=== PATIENT | male | born 1940 | race Caucasian/White ===

== ENCOUNTER 2017-07-02 21:36 | Emergency (ER) | payer OTHER ==
[~2017-07-02] VITALS: Ht 175.3 cm; Wt 108.9 kg
--- NOTE | 2017-07-02 21:45 | NUR ---
BIBRA FOR GLF; NO KO; PATIENT DENIES ANY TRAUMA FROM FALL, CHRONIC BACK PAIN; , ADMITS TO ETOH, NAD NOTED, VSS, RESP EVEN AND UNLABORED, PT PUT ON MONITOR, WAITING FOR MD APARICIO.
--- NOTE | 2017-07-02 22:53 | NUR ---
CALLED PT'S JULIO [phone], WILL COME AND PICK THE PT.
[2017-07-02] MEDS ORDERED: KETOROLAC TROMETHAMINE INJ 30 MG/ML VIAL ONE (22:56)
[2017-07-02] MEDS ORDERED: KETOROLAC TROMETHAMINE INJ 60 MG/2 ML VIAL IM ONE (23:00)
--- NOTE | 2017-07-02 23:08 | NUR ---
Patient is resting comfortably in bed with eyes closed. Easily aroused. VSS
--- NOTE | 2017-07-02 23:08 | NUR ---
REPORT GIVEN TO MAGUI MUÑOZ
[2017-07-02 23:21] VITALS: BP 115/65
--- NOTE | 2017-07-02 23:39 | NUR ---
ER MD AT BEDSIDE SPEAKING WITH /PATIENT REGARDING CARE
--- NOTE | 2017-07-02 23:47 | NUR ---
XR CANCELLED BY MD AND FAMILY
== END 2017-07-02 23:25 | disposition home or self-care (01) ==
LOC: ER 21:38
DX: G89.29 Other chronic pain (principal); M54.9 Dorsalgia, unspecified; F10.129 Alcohol abuse with intoxication, unspecified; E78.00 Pure hypercholesterolemia, unspecified; W18.39XA Other fall on same level, initial encounter; Y93.89 Activity, other specified; Y92.89 Other specified places as the place of occurrence of the external cause; Y99.8 Other external cause status
CPT/HCPCS: A4606; A6253; A6402; J1885; Z7610

== ENCOUNTER 2021-01-17 19:17 | Emergency (ER) | payer OTHER ==
[~2021-01-17] VITALS: Ht 182.9 cm; Wt 123.8 kg
--- NOTE | 2021-01-17 19:27 | NUR ---
PATIENT BIBRA 839 FROM [facility] C/O LEFT LOWER INJURY. NOTED + DEFORMITY. PATIENT IS A/O X 4, RR EVEN AND UNLABORED NO SOB NOTED. PATIENT CONNECTED TO CARDIAC AND POX MONITOR.
--- NOTE | 2021-01-17 19:29 | NUR ---
CALLED DR SANTAMARIA FOR PEER TO PEER
[2021-01-17] MEDS ORDERED: TDAP [DIPH/PERTUSSIS/TET] 0.5 ML VIAL IM ONE ×2 (19:30→19:35)
[2021-01-17] MEDS ORDERED: CEFAZOLIN 1 GM in IV D5W 50 ML IV ONE (19:30)
[2021-01-17] MEDS ORDERED: MORPHINE SULFATE INJ 2 MG/ML DISP.SYRIN IV ONE (19:30)
[2021-01-17] MEDS ORDERED: MORPHINE SULFATE INJ 4 MG/ML DISP.SYRIN ONE (19:35)
[2021-01-17 19:41] LABS: BASOPHILS # (AUTO) 0.1 K/uL (0.0-0.2); BASOPHILS % (AUTO) 1.3 % (0.0-2.0); EOSINOPHILS % (AUTO) 2.2 % (0.0-6.0); HEMATOCRIT 40 % (39-51); HEMOGLOBIN 13.3 g/dL (13.5-17.5); LYMPHOCYTES # (AUTO) 1.3 K/uL (0.8-4.8); LYMPHOCYTES % (AUTO) 27.4 % (20.0-44.0); MEAN CORPUSCULAR HGB CONC 33 g/dl (31.0-36.0); MEAN CORPUSCULAR VOLUME 100 fL (80-96); MONOCYTES # (AUTO) 0.8 K/uL (0.1-1.30); MONOCYTES % (AUTO) 16.5 % (2.0-12.0); NEUTROPHILS # (AUTO) 2.5 K/uL (1.8-8.9); NEUTROPHILS % (AUTO) 52.6 % (43.0-81.0); PLATELET COUNT (AUTO) 213 K/uL (150-450); RED BLOOD CELL COUNT(AUTO) 4.02 MIL/uL (4.5-6.0); WHITE BLOOD COUNT (AUTO) 4.8 K/uL (4.3-11.0)
[2021-01-17 19:53] LABS: CALCIUM, SERUM 8.6 mg/dL (8.5-10.1); CARBON DIOXIDE 28 mmol/L (21-32); CHLORIDE 107 mmol/L (98-107); CREATININE 1.4 mg/dL (0.6-1.3); GLUCOSE 93 mg/dL (74-106); POTASSIUM 4.5 mmol/L (3.5-5.1); SODIUM SERUM 143 mmol/L (136-145); UREA NITROGEN, BLOOD 17 mg/dL (7-18)
--- NOTE | 2021-01-17 20:00 | NUR ---
RAD AT BEDSIDE
--- NOTE | 2021-01-17 20:55 | NUR ---
BULL FROM [facility] CALLED. VS WERE GIVEN. SHE WILL PAGE THEIR DOC TO CALL ER DOCTOR.
[2021-01-17] MEDS ORDERED: KETAMINE HCL (500MG/10ML) 50 MG/ML VIAL ONE (21:00)
[2021-01-17] MEDS ORDERED: KETAMINE HCL (500MG/10ML) 50 MG/ML VIAL IV ONE (21:00)
--- NOTE | 2021-01-17 21:00 | NUR ---
consent obtained for moderate sedation for reduction of open fracture of left lower leg.
--- NOTE | 2021-01-17 21:06 | NUR ---
vitals signs. RT, EMT, RN and MD at bedside
--- NOTE | 2021-01-17 21:07 | NUR ---
Timeout. Ketamine 120mg ivp x 1
--- NOTE | 2021-01-17 21:09 | NUR ---
Pt sedated. on 02 via NRB satting @ 100%. RT at bedside
--- NOTE | 2021-01-17 21:36 | NUR ---
pt is now awake and able to answer questions. airway patent. tolearting on ra, satting @ 98%.
[2021-01-17] MEDS ORDERED: IV NS 0.9% 500 ML BAG IV ONE (22:00)
--- NOTE | 2021-01-17 22:38 | NUR ---
SPOKE TO BILLY AT [facility], AWAITING HOSPITALIST TO ACCEPT PT
[2021-01-17 23:08] LABS: BASOPHILS % (MANUAL) 0 % (0.0-2.0); EOSINOPHILS % (MANUAL) 2 % (0-4); LYMPHOCYTES % (MANUAL) 18 % (16-48); MONOCYTES % (MANUAL) 11 % (0-11.0); NEUTROPHILS % (MANUAL) 69 (42-76)
--- NOTE | 2021-01-17 23:50 | NUR ---
PT SLEEPING WITH EYES CLOSED. ATTACHED TO MONITOR VSS, EASILY AROUSABLE
[2021-01-18] MEDS ORDERED: MORPHINE SULFATE INJ 4 MG/ML DISP.SYRIN ONE (01:11)
--- NOTE | 2021-01-18 01:26 | NUR ---
PATIENT STATED 8/10 PAIN AT LOWER LEFT LEG. PER ER MD MORPHINE 4 MG IVP. PATIENT VSS.
[2021-01-18] MEDS ORDERED: MORPHINE SULFATE INJ 2 MG/ML DISP.SYRIN IV ONE (01:30)
--- NOTE | 2021-01-18 03:32 | NUR ---
[facility] going to [facility] under Dr. Solitario. room 4115a. call report to [phone]. [facility] ambulance eta [phone]
[2021-01-18 04:12] VITALS: BP 116/55
--- NOTE | 2021-01-18 04:26 | NUR ---
REPORT GIVEN TO ANITHA ROSADO.
--- NOTE | 2021-01-18 05:03 | NUR ---
EMS AT BEDSIDE, REPORT GIVEN
== END 2021-01-18 05:16 | disposition short-term general hospital (02) ==
LOC: ER 19:20
DX: S82.52XB Displaced fracture of medial malleolus of left tibia, initial encounter for open fracture type I or II (principal); S82.832A Other fracture of upper and lower end of left fibula, initial encounter for closed fracture; W18.30XA Fall on same level, unspecified, initial encounter; Y92.019 Unspecified place in single-family (private) house as the place of occurrence of the external cause; E78.00 Pure hypercholesterolemia, unspecified; Z79.01 Long term (current) use of anticoagulants; Z20.822 Contact with and (suspected) exposure to COVID-19
CPT/HCPCS: 27810; 36415; 73610 ×2; 73630; 80048; 84484; 85007; 85025; 87426; 90471; 90715; 96361; 96365; 96375; 96376; 99152; 99291; 99292; A6253; C9803; J0690; J2270 ×2; J3490; J7030; J7060; G0500